=== PATIENT | male | born 2005 | race Caucasian/White ===

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

== ENCOUNTER 2024-08-13 15:17 | Outpatient (REF) | payer MEDICAID, SELFPAY ==
--- OUTSIDE RECORDS SUMMARY | 2024-08-13 15:23 | XMS_ITS | Encounter Summary ---
Author Organization [employer] Address [address] [facility] 7t [place] [address] Care Team Providers Care Complaint Evaluation Officer Name Role Phone Denisse Bradshaw MD Primary Care Provider [phone] Encounter Details Date Type Department Care Team (Late st Contact Info) Description 08/13/2023 Orders Only [facility] [address] [place] [address] ProviderAdelina MD Social History Tobacco Use Types Packs/Day Years Used Date Smoking Tobacco: Never Passive Smoke Exposure: Never Smokeless Tobacco: Never Depression Answer Date Recorded Patient Health Questionnaire-9 Score 21 06/26/2023 Patient Health Questionnaire-9 Score 21 06/26/2023 Last PHQ-9: Questionnaire Data Not on file 0 06/26/2023 Housing Stability Answer Date Recorded What is your housing situation today? I have abrahamanand levy 02/03/[address] you li ve. Do you have problems with any of the following? None of the above 02/03/2023 Food Insecurity Answer Date Recorded Within the past 12 months, y ou worried that your food would run out before you got money to buy more: Never True 02/03/2023 Within the past 12 months,th e food you bought just didn't last and you didn't have enough money to get more: Never True Transportation Answer Date Recorded In the past 12 months, has l ack of transportation kept you from medical appts, meetings, work or from getting things needed for daily living? Yes, it has kept me from medical appointments or getting medications. 01/14/2023 Utilities Answer Date Recorded In the past 12 months, has t he electric, gas, oil or water company threatened to shut off services in your home? No 02/03/2023 Depression Answer Date Recorded Patient Health Questionnaire-2 Score 5 06/26/2023 Comments Unknown Sex and Gender Information Value Date Recorded Sex Assigned at Female 02/04/2022 10:19 AM EDT Legal Sex Female 10:19 AM EDT Gender Identity Transgender Male 02/04/2022 10:1 9 AM EDT Sexual Orientation Something else 02/04/2022 10 :19 AM EDT documented as of this encounter Plan of Treatment Upcoming Encounters Date Type Department Care Team (Latest Contact Info) Description 08/13/2024 3:30 PM EDT Office Visit [facility] [address] [place] [address] Juan Jose Reyes MD [address] [place] [address] Acute cough (Primary Dx) 10/27/2024 3:30 PM EDT Office Visit [facility] [address] [place] [address] Saurabh Guerra, LESLEE [address] [place] [address] 11/10/2024 11:00 AM EDT Procedure Visit [facility] [address] [place] [address] Denisse Bradshaw MD [address] [place] [address] documented as of this encounter Procedures Procedure Name Priority Date/Time Associated Diagnosis Comments PATHOLOGY REPORT (HISTOPATHOLOGY) Routine 08/11/2023 9:13 AM EDT documented in this encounter Results * Pathology Report (08/11/2023 9:13 AM EDT) Tissue us Historical Provider LAB PATHOLOGY ORDERABLES Final Result documented in this encounter Visit Diagnoses Not on filedocumented in this encounter Additional Health Concerns Assessment Noted Time PHQ-9 Depression Total Score: 21 024 10:09 AM EDT documented as of this encounter Care Teams Complaint Evaluation Officer Relationship Specialty Start Date End Date Denisse Bradshaw MD [address] [place] [address] PCP - General Family Medicine 04/14/13 documented as of this encounter
--- OUTSIDE RECORDS SUMMARY | 2024-08-13 15:23 | XMS_ITS | Encounter Summary ---
Author Organization [employer] Address [address] [facility] 7t [place] [address] Care Team Providers Care Lofter Name Role Phone Denisse Bradshaw MD Primary Care Provider [phone] Encounter Details Date Type Department Care Team (Latest Contact Info) Description 08/13/2024 Travel Social History Tobacco Use Types Packs/Day Years Used Date Smoking Tobacco: Never Passive Smoke Exposure: Never Smokeless Tobacco: Never Depression Answer Date Recorded Patient Health Questionnaire-9 Score 21 08/06/2024 Patient Health Questionnaire-9 Score 21 08/06/2024 Last PHQ-9: Questionnaire Data Not on file 0 08/06/2024 Housing Stability Answer Date Recorded What is your housing situation today? I have abraham cam 10/14/[address] you li ve. Do you have problems with any of the following? None of the above 10/14/2023 Food Insecurity Answer Date Recorded Within the past 12 months, y ou worried that your food would run out before you got money to buy more: Sometimes True 2024 Within the past 12 months,th e food you bought just didn't last and you didn't have enough money to get more: Sometimes True 07/30/2024 Transportation Answer Date Recorded In the past 12 months, has l ack of transportation kept you from medical appts, meetings, work or from getting things needed for daily living? Yes, it has kept me from medical appointments or getting medications. 07/30/2024 Utilities Answer Date Recorded In the past 12 months, has t he electric, gas, oil or water company threatened to shut off services in your home? No 10/14/2023 Depression Answer Date Recorded Patient Health Questionnaire-2 Score 3 08/06/2024 Internet Access Answer Date Recorded Internet Access Q1 Yes 12/08/2023 Internet Access Q2 Not on file 12/08/2023 Comments Unknown Sex and Gender Information Value [...] Description 08/13/2024 3:30 PM EDT Office Visit [facility] [address] [place] [address] Juan Jose Reyes MD [address] [place] [address] Acute cough (Primary Dx) 10/27/2024 3:30 PM EDT Office Visit [facility] [address] [place] [address] Saurabh Guerra, DMD [address] [place] [address] 11/10/2024 11:00 AM EDT Procedure Visit [facility] [address] [place] [address] Denisse Bradshaw MD [address] [place] [address] documented as of this encounter Visit Diagnoses Not on filedocumented in this encounter Additional Health Concerns Assessment Noted Time PHQ-9 Depression Total Score: 21 025 11:36 AM EDT documented as of this encounter Care Teams Lofter Relationship Specialty Start Date End Date Denisse Bradshaw MD [address] [place] [address] PCP - General Family Medicine 04/14/13 documented as of this encounter
--- OUTSIDE RECORDS SUMMARY | 2024-08-13 15:23 | XMS_ITS | Encounter Summary ---
Author Organization [employer] Address [address] [facility] 7t [place] [address] Care Team Providers Care Labourers Name Role Phone Denisse Bradshaw MD Primary Care Provider [phone] Reason for Visit * Reason Onset Date Comments Nurse Triage 08/13/2024 Encounter Details Date Type Department Care Team ([facility] st Contact Info) Description 08/13/2024 Telephone [facility] [address] [place] [address] Denisse Bradshaw MD [address] [place] [address] Nurse Triage Social History Tobacco Use Types Packs/Day Years Used Date Smoking Tobacco: Never Passive Smoke Exposure: Never Smokeless Tobacco: Never Depression Answer Date Recorded Patient Health Questionnaire-9 Score 21 08/06/2024 Patient Health Questionnaire-9 Score 21 08/06/2024 Last PHQ-9: Questionnaire Data Not on file 0 08/06/2024 Housing Stability Answer Date Recorded What is your housing situation today? I have abraham levy 10/14/[address] you li [...] AM EDT documented as of this encounter Miscellaneous Notes * Telephone Encounter - Destiney Elizabeth RN - 08/13/2024 11:12 AM EDT Called pt. He states that he has been having a bad cough and sharp pains in lungs. Pt. Has all overbody pain. Pt. States that he had Pneumonia in past and that is what his lungs feel like. Pt. Has all over body pain. Pt. Has positive wheeze. Pt. Does not have HX. Of Asthma and does not have inhalers. Pt. Does not know if he has a fever. Pt. Does have chills and sweats. Protocol Used: Cough (Adult) Protocol-Based Disposition: Go to Office at 330pm today with dr. Reyes in [facility] Video visit offer not recorded Positive Triage Questions: * Mild difficulty breathing (e.g., minimal/no SOB at rest, SOB with walking, pulse < 100) and still present when not coughing * Wheezing is present * Severe coughing spells with wheeze * Continuous (nonstop) coughing interferes with work or school and no improvement using cough treatment per Care Advice * Patient wants to be seen * All higher-acuity triage questions were negative Care Advice Discussed: * Cough Medicines * Coughing Spells * Prevent Dehydration * Avoid Tobacco Smoke * Humidifier * Fever Medicines * Telephone Encounter - Malena Vasques - 08/13/2024 11:00 AM EDT Symptom: Cough Outcome: Schedule an urgent appointment (within 1 hour) or talk to a nurse or provider soon Reason: Wheezing (high-pitched whistling sound) The caller accepted this outcome. documented in this encounter Plan of Treatment Upcoming Encounters Date Type Department Care Team (Latest Contact Info) Description 08/13/2024 3:30 PM EDT Office Visit [facility] [address] [place] [address] Juan Jose Reyes MD [address] [place] [address] Acute cough (Primary Dx) 10/27/2024 3:30 PM EDT Office Visit [facility] [address] [place] [address] Saurabh Guerra DMD [address] [place] [address] 11/10/2024 11:00 AM EDT Procedure Visit [facility] [address] [place] [address] Denisse Bradshaw MD [address] [place] [address] documented as of this encounter Visit Diagnoses Not on filedocumented in this encounter Additional Health Concerns Assessment Noted Time PHQ-9 Depression Total Score: 21 025 11:36 AM EDT documented as of this encounter Care Teams Labourers Relationship Specialty Start Date End Date Denisse Bradshaw MD [address] [place] [address] PCP - General Family Medicine 04/14/13 documented as of this encounter
--- OUTSIDE RECORDS SUMMARY | 2024-08-13 15:23 | XMS_ITS | Encounter Summary ---
Author Organization [employer] Address [address] [facility] 7t [place] [address] Care Team Providers Care Pattern Hanger Name Role Phone Denisse Bradshaw MD Primary Care Provider [phone] Encounter Details Date Type Department Care Team ([facility] st Contact Info) Description 08/11/2023 Orders Only [facility] & PEDS [address] [place] [address] ProviderAdelina MD Social History Tobacco Use Types [...] 08/13/2024 3:30 PM EDT Office Visit [facility] [address] [place] [address] Juan Jose Reyes MD [address] [place] [address] Acute cough (Primary Dx) 10/27/2024 3:30 PM EDT Office Visit [facility] [address] [place] [address] Saurabh Guerra, DMD [address] [place] [address] 11/10/2024 11:00 AM EDT Procedure Visit [facility] [address] [place] [address] Denisse Bradshaw MD [address] [place] [address] documented as of this encounter Procedures Procedure Name Priority Date/Time Associated Diagnosis Comments HCG, QL, URINE Routine 08/11/2023 10:43 AM EDT documented in this encounter Results * HCG, Qualitative, Urine (08/11/2023 10:43 AM EDT) Urine Urine specimen obtained by clean catch procedure / Unknown us Historical Provider LAB URINE ORDERABLES Stefany l Result documented in this encounter Visit Diagnoses Not on filedocumented in this encounter Additional Health Concerns Assessment Noted Time PHQ-9 Depression Total Score: 21 024 10:09 AM EDT documented as of this encounter Care Teams Pattern Hanger Relationship Specialty Start Date End Date Denisse Bradshaw MD [address] [place] [address] PCP - General Family Medicine 04/14/13 documented as of this encounter
--- OUTSIDE RECORDS SUMMARY | 2024-08-13 15:23 | XMS_ITS | Encounter Summary ---
Author Organization [employer] Address [address] [place] [address] 7 [place] [address] Care Team Providers Care Automobile Contract Clerk Name Role Phone Denisse Bradshaw MD Primary Care Provider [phone] Reason for Visit * Reason Comments Cough Encounter Details Date Type Department Care Team ([facility] Contact Info) Description 08/13/2024 3:30 PM EDT Office Visit [facility]ED[facility] [address] [place], [place] [phone] Juan Jose Reyes MD [address] [place] [address] Acute cough (Primary Dx) Social History Tobacco Use Types Packs/Day Years [...] AM EDT documented as of this encounter Last Filed Vital Signs Vital Sign Reading Time Taken Comments Blood Pressure 137/87 08/13/2024 2:45 PM EDT Pulse 105 08/13/2024 2:45 PM EDT Temperature 36.8 ??C (98.2 ??F) 08/13/2024 2:45 PM ED T Respiratory Rate 19 08/13/2024 2:45 PM EDT Oxygen Saturation 96% 08/13/2024 2:45 PM EDT Inhaled Oxygen Concentration - - Weight - - Height - - Body Mass Index - - documented in this encounter Progress Notes * Juan Jose Reyes MD - 08/13/2024 3:30 PM EDT SUBJECTIVE Cheng Judd is a 19 y.o. adult who presents for Cough. Cough This is a new problem. The current episode started in the past 7 days. Associated symptoms include shortness of breath. Pertinent negatives include no chest pain, chills, ear congestion, ear pain, eye redness, fever, headaches, heartburn, hemoptysis, myalgias, nasal congestion, postnasal drip, rash, rhinorrhea, sore throat, sweats, weight loss or wheezing. No sick contact. No reported fever. Patient denies smoking. Got concerned because of history of pneumonia about 4 years ago. Patient Active Problem List Diagnosis Depressive disorder Gender dysphoria Constipation Urinary tract infectious disease Polyarthralgia Primary insomnia PTSD (post-traumatic stress disorder) No Known Allergies Current Outpatient Medications on File Prior to Visit Medication Sig Dispense Refill Diclofenac Sodium 1 % gel Apply bid to affected areas 100 g 3 fluticasone (Flonase Allergy Relief) 50 MCG/ACT nasal spray Administer 1 spray into each nostril Once per day. 16 g 3 hydrOXYzine pamoate (Vistaril) 25 MG capsule Take 1 capsule (25 mg) by mouth every 8 (eight) hours if needed for itching. 90 capsule 1 ketoconazole (NIZOral) 2 % shampoo shampoo 5-10 cc, leave on 5 minutes, then rinse off 2x/week for 2-4 weeks prn. 100 mL 11 Ketotifen Fumarate 0.035 % solution Inject 1 drop into the eye Once per day. 10 mL 3 loratadine (Claritin) 10 MG tablet TAKE 1 TABLET BY MOUTH EVERY DAY IF NEEDED FOR ALLERGY SYMPTOMS 90 tablet 3 norethindrone (Micronor) 0.35 MG tablet prazosin (Minipress) 1 MG capsule Take 1 capsule orally 1 hour prior bedtime 30 capsule 5 sertraline (Zoloft) 50 MG tablet Take 1 tablet orally daily 30 tablet 5 SUMAtriptan (Imitrex) 50 MG tablet TAKE 1 TABLET (50 MG) BY MOUTH 1 (ONE) TIME IF NEEDED FOR MIGRAINE FOR UP TO 108 DOSES. 9 tablet 11 testosterone cypionate (Depo-Testosterone) 200 MG/ML injection INJECT 0.2 ML (40 MG) SUBCUTANEOUSLYEVERY 7 DAYS. *SINGLE USE VIALS - DO NOT REUSE* traZODone (Desyrel) 50 MG tablet Take 1 tablet (50 mg) by mouth at bedtime. 30 tablet 5 No current facility-administered medications on file prior to visit. Review of Systems Constitutional: Positive for fatigue. Negative for chills, fever and weight loss. Body aches HENT: Negative for ear pain, facial swelling, hearing loss, postnasal drip, rhinorrhea and sore throat. Eyes: Negative for pain, redness and itching. Respiratory: Positive for cough and shortness of breath. Negative for apnea, hemoptysis, chest tightness and wheezing. Cardiovascular: Negative for chest pain, palpitations and leg swelling. Gastrointestinal: Negative for heartburn. Musculoskeletal: Negative for myalgias. Skin: Negative for rash. Neurological: Negative for headaches. OBJECTIVE Vitals: 08/13/24 1445 BP: 137/87 BP Location: Left arm Patient Position: Sitting BP Cuff Size: Adult Pulse: 105 Resp: 19 Temp: 98.2 ??F (36.8 ??C) TempSrc: Oral SpO2: 96% Physical Exam Constitutional: General: He is not in acute distress. Appearance: Normal appearance. He is not ill-appearing, toxic-appearing or diaphoretic. HENT: Head: Normocephalic. Nose: Nose normal. Eyes: Pupils: Pupils are equal, round, and reactive to light. Cardiovascular: Rate and Rhythm: Normal rate. Pulmonary: Effort: Pulmonary effort is normal. Neurological: General: No focal deficit present. Mental Status: He is alert. Psychiatric: Mood and Affect: Mood normal. Assessment/Plan Assessment/Plan Diagnoses and all orders for this visit: Acute cough Comments: Most likely has a viral syndrome Supportive care recommended. To start the prescribed zpak only if coughing after 3 more days or if the xray is showing consolidation. Will be called with the results of the workup. Orders: - XR Chest 2 Views; Future - CBC auto differential; Future - Sed Rate by Modified Westergren; Future - C-reactive Protein; Future - POCT Rapid Covid-19 BinaxNOW - POCT Rapid Influenza A OSOM - POCT Rapid Influenza B OSOM - azithromycin (Zithromax) 250 MG tablet; 500 mg on day 1, 250 mg day 2 through 5. - dextromethorphan-guaiFENesin (Tussin DM) 10-100 MG/5ML liquid; Take 5 mL by mouth every 4 (four) hours if needed for cough for up to 10 days. - acetaminophen (Tylenol) 325 MG tablet; Take 2 tablets (650 mg) by mouth every 6 (six) hours if needed for mild pain for up to 10 days. documented in this encounter Plan of Treatment Upcoming Encounters Date Type Department Care Team (Late st Contact Info) Description 10/27/2024 3:30 PM EDT Office Visit [facility] [address] [place] [address] Saurabh Guerra DMD [address] [place] [address] 11/10/2024 11:00 AM EDT Procedure Visit [facility] [address] [place] [address] Denisse Bradshaw MD [address] [place] [address] Scheduled Orders Name Type Priority Associated Diagnoses Orde r Schedule XR Chest 2 Views Imaging Routine Acute cough Expected: 08/13/2024, Expires: 08/13/2025 CBC auto differential Lab Routine Acute cough Expected: 08/13/2024 (Approximate), Expires: 08/13/2025 Sed Rate by Modified Westergren Lab Routine Acute cough Expected: 08/13/2024, Expires: 08/13/2025 C-reactive Protein Lab Routine Acute cough Expected: 08/13/2024 (Approximate), Expires: 08/13/2025 POCT Rapid Covid-19 BinaxNOW Point of Care Testing Routine Acute cough Ordered: 08/13/2024 POCT Rapid Influenza A OSOM Point of Care Testing Routine Acute cough Ordered: 08/13/2024 POCT Rapid Influenza B OSOM Point of Care Testing Routine Acute cough Ordered: 08/13/2024 documented as of this encounter Visit Diagnoses Diagnosis Acute cough- Primary documented in this encounter Additional Health Concerns Assessment Noted Time PHQ-9 Depression Total Score: 21 025 11:36 AM EDT documented as of this encounter Care Teams Automobile Contract Clerk Relationship Specialty Start Date End Date Denisse Bradshaw MD [address] [place] [address] PCP - General Family Medicine 04/14/13 documented as of this encounter
--- OUTSIDE RECORDS SUMMARY | 2024-08-13 15:23 | XMS_ITS | Encounter Summary ---
Author Organization [employer] Address [address] [facility] 7 [place] [address] Care Team Providers Care Commercial Lines Account Assistant Name Role Phone Denisse Bradshaw MD Primary Care Provider [phone] Reason for Visit * Reason Onset Date Comments pre-op 05/05/2023 Encounter Details Date Type Department Care Team ([facility] Contact Info) Description 05/05/2023 Telephone [facility] MED & PEDS [address] [place], [place] [phone] Denisse Bradshaw MD [address] [place] [address] pre-op Social History Tobacco Use Types Packs/Day Years Used Date Smoking Tobacco: Never Passive Smoke Exposure: Never Smokeless Tobacco: Never Housing Stability Answer Date Recorded What is [...] the past 12 months, has t he [employer], oil or water company threatened to shut off services in your home? No 02/03/2023 Comments Unknown Sex and Gender Information Value Date Recorded Sex Assigned at Female 02/04/2022 10:19 AM EDT Legal Sex Female 10:19 AM EDT Gender Identity Transgender Male 02/04/2022 10:1 9 AM EDT Sexual Orientation Something else 02/04/2022 10 :19 AM EDT documented as of this encounter Miscellaneous Notes * Telephone Encounter - Wing Fiordaliza RN - 06/05/2023 11:39 AM EST Tc to pt regarding upcoming surgery and need for pre-op appt. Unable to reach pt, left message for pt to call back. * Telephone Encounter - Sintia Villareal - 05/05/2023 2:37 PM EST Tc from pt grandparent in regards to an upcoming surgery patient is having on August 11, 2023 @ 9:45 am for a Breast Removal Surgery @ [facility]. States that Facility advised to contact PCP and schedule a Pre- Op appt but grandparent does not know half of the information needed. Please contact pt @ [phone] documented in this encounter Plan of Treatment Upcoming Encounters Date Type Department Care Team (Latest Contact Info) Description 08/13/2024 3:30 PM EDT Office Visit [facility] MED & PEDS [address] [place] [address] Juan Jose Reyes MD [address] [place] [address] Acute cough (Primary Dx) 10/27/2024 3:30 PM EDT Office Visit [facility] ADULT DENTAL [address] [place] [address] Saurabh Guerra DMD [address] [place] [address] 11/10/2024 11:00 AM EDT Procedure Visit [facility] MED & PEDS [address] [place] [address] Denisse Bradshaw MD [address] [place] [address] documented as of this encounter Visit Diagnoses Not on filedocumented in this encounter Care Teams Commercial Lines Account Assistant Relationship Specialty Start Date End Date Denisse Bradshaw MD [address] [place] [address] PCP - General Family Medicine 04/14/13 documented as of this encounter
--- OUTSIDE RECORDS SUMMARY | 2024-08-13 15:23 | XMS_ITS | Encounter Summary ---
Author Organization [employer] Address [address] [facility] 7t [place] [address] Care Team Providers Care Electronic Scale Tester Name Role Phone Denisse Bradshaw MD Primary Care Provider [phone] Encounter Details Date Type Department Care Team ([facility] st Contact Info) Description 08/05/2023 Orders Only [facility] MED & PEDS [address] [place], [place] [phone] Juan Jose Reyes MD [address] [place] [address] Social History Tobacco Use Types Packs/Day Years Used Date Smoking Tobacco: Never Passive Smoke Exposure: Never Smokeless Tobacco: Never Depression Answer Date Recorded Patient Health Questionnaire-9 Score 21 06/26/2023 Patient Health Questionnaire-9 Score 21 06/26/2023 Last PHQ-9: Questionnaire Data Not on file 0 06/26/2023 Housing Stability Answer Date Recorded What is your housing situation today? I have abraham levy 02/03/[address] you [...] 08/13/2024 3:30 PM EDT Office Visit [facility] MED [facility] PEDS [address] [place] [address] Juan Jose Reyes MD [address] [place] [address] Acute cough (Primary Dx) 10/27/2024 3:30 PM EDT Office Visit [facility] ADULT DENTAL [address] [place] [address] Saurabh Guerra DMD [address] [place] [address] 11/10/2024 11:00 AM EDT Procedure Visit [facility] MED & PEDS [address] [place] [address] Denisse Bradshaw MD [address] [place] [address] documented as of this encounter Visit Diagnoses Not on filedocumented in this encounter Additional Health Concerns Assessment Noted Time PHQ-9 Depression Total Score: 21 024 10:09 AM EDT documented as of this encounter Care Teams Electronic Scale Tester Relationship Specialty Start Date End Date Denisse Bradshaw MD [address] [place] [address] PCP - General Family Medicine 04/14/13 documented as of this encounter
--- OUTSIDE RECORDS SUMMARY | 2024-08-13 15:23 | XMS_ITS | Clinical Summary ---
Author Organization [employer] Address [address] [facility] 7t [place] [address] Care Team Providers Care Valuation Manager Name Role Phone Denisse Bradshaw MD Primary Care Provider Allergies No known active allergies Medications testosterone cypionate (Depo-Testost erone) 200 MG/ML injection INJECT 0.2 ML (40 MG) SUBCUTANEOUSLY EVERY 7 DAYS. *SINGLE USE VIALS - DO NOT REUSE* 023 Active norethindrone (Micronor) 0.35 MG tablet 023 Active Diclofenac Sodium 1 % gel Apply bid to affected areas 100 g 3 023 Active ketoconazole (NIZOral) 2 % shampoo shampoo 5-10 cc, leave on 5 minutes, then rinse off 2x/week for 2-4 weeks prn. 100 mL 11 024 Active SUMAtriptan (Imitrex) 50 MG tablet TAKE 1 TABLET (50 MG) BY MOUTH 1 (ONE) TIME IF NEEDED FOR MIGRAINE FOR UP TO 108 DOSES. 9 tablet 11 025 Active loratadine (Claritin) 10 MG tablet TAKE 1 TABLET BY MOUTH EVERY DAY IF NEEDED FOR ALLERGY SYMPTOMS 90 tablet 3 025 Active sertraline (Zoloft) 50 MG tablet Take 1 tablet orally daily 30 tablet 5 025 Active hydrOXYzine pamoate (Vistaril) 25 MG capsule Take 1 capsule (25 mg) by mouth every 8 (eight) hours if needed for itching. 90 capsule 1 025 Active prazosin (Minipress) 1 MG capsule Take 1 capsule orally 1 hour prior bedtime 30 capsule 5 Active traZODone (Desyrel) 50 MG tablet Take 1 tablet (50 mg) by mouth at bedtime. 30 tablet 5 Active fluticasone (Flonase Allergy Relief) 50 MCG/ACT nasal spray Administer 1 spray into each nostril Once per day. 16 g 3 Active Ketotifen Fumarate 0.035 % solutionIndic ations:Allerg y, subsequent encounter Inject 1 drop into the eye Once per day. 10 mL 3 Active azithromycin (Zithromax) 250 MG tabletIndicat ions:Acute cough 500 mg on day 1, 250 mg day 2 through 5. 6 tablet Active dextromethorp araujo-guaiFENes in (Tussin DM) 10-100 MG/5ML liquidIndicat ions:Acute cough Take 5 mL by mouth every 4 (four) hours if needed for cough for up to 10 days. 180 mL 025 2024 Active acetaminophen (Tylenol) 325 MG tabletIndicat ions:Acute cough Take 2 tablets (650 mg) by mouth every 6 (six) hours if needed for mild pain for up to 10 days. 30 tablet 025 2024 Active fluticasone (Flonase Allergy Relief) 50 MCG/ACT nasal spray 1 spray by intranasal route daily ;administer into each nostril 022 2024 Discontinued(R eorder (will not trigger notification to Pharmacy)) SUMAtriptan (Imitrex) 50 MG tablet Take 1 tablet (50 mg) by mouth 1 (one) time if needed for migraine for up to 108 doses. 9 tablet 11 024 2024 Discontinued loratadine (Claritin) 10 MG tablet TAKE 1 TABLET BY MOUTH EVERY DAY IF NEEDED FOR ALLERGY SYMPTOMS 90 tablet 3 024 2024 Discontinued ketotifen (Zaditor) 0.025 % ophthalmic solutionIndic ations:Allerg y, subsequent encounter INSTILL 1 DROP INTO BOTH EYES TWICE A DAY NEEDED FOR ALLERGIES 5 mL 11 024 2024 Discontinued(R eorder (will not trigger notification to Pharmacy)) hydrOXYzine pamoate (Vistaril) 25 MG capsule TAKE 1 CAPSULE BY MOUTH EVERY 6 (SIX) HOURS IF NEEDED FOR ANXIETY. 120 capsule 1 024 2024 Discontinued(R eorder (will not trigger notification to Pharmacy)) traZODone (Desyrel) 50 MG tablet Take 1 tablet (50 mg) by mouth at bedtime. 90 tablet 1 024 2024 Discontinued sertraline (Zoloft) 50 MG tablet Take 1 and a half tablet orally daily 45 tablet 5 024 2024 Discontinued(R eorder (will not trigger notification to Pharmacy)) prazosin (Minipress) 1 MG capsule Take 1 capsule orally 1 hour prior bedtime 30 capsule 5 2024 Discontinued(R eorder (will not trigger notification to Pharmacy)) traZODone (Desyrel) 50 MG tablet TAKE 1 TABLET BY MOUTH AT BEDTIME 90 tablet 1 025 2024 Discontinued(R eorder (will not trigger notification to Pharmacy)) Active Problems Problem Noted Date Diagnosed Date PTSD (post-traumatic stress disorder) 10/14/2023 Primary insomnia 09/17/2023 Assessment & Plan (09/17/2023 11:23 AM EDT): Discussed current medications as needed. Discussed treatment options for symptoms and potential side effects. Prescribed Desyrel. F/u on 10/14/[address] Bradshaw. Relevant Medications Trazodone (Desyrel) 50 MG Tablet Polyarthralgia 11/26/2022 Assessment & Plan (11/26/2022 3:15 PM EDT): Patient with chronic diffused joint pain. Will send for xrays and schedule appointment with PCP. Will benefit from referral to set o type operator, referral placed. Will send labs. Gender dysphoria 07/02/2022 Depressive disorder 06/27/2022 Constipation 08/06/2013 Urinary tract infectious disease 01/23/2011 Encounters Date Type Department Care Team Description 08/13/2024 3:30 PM EDT Office Visit [facility] MED & PEDS [address] [place], [place] [phone] Juan Jose Reyes MD Acute cough (Primary Dx) 08/13/2024 Travel 08/13/2024 Telephone [facility] [address] [place] [address] Denisse Bradshaw MD Nurse Triage 08/06/2024 10:30 AM EDT Office Visit [facility] MED & PEDS [address] [place] [address] Denisse Bradshaw MD Anxiety with depression (Primary Dx); Allergy, subsequent encounter; Dietary counseling; Exercise counseling; Gender dysphoria 08/06/2024 Travel 07/30/2024 Patient Outreach [facility] [address] [place] [address] Denisse Bradshaw MD Care Coordination (CHW outreach for SDOH PT-1 and food needs-referral completed /) 07/30/2024 Patient Outreach [address] [address] Denisse Bradshaw MD Pre-visit Planning (SDOH screening positive and Tobacco screening negative) 07/16/2024 Refill [facility] MED & PEDS [address] [place] [address] Denisse Bradshaw MD from Last 3 Months Immunizations Name Administration Dates Next Due DTaP, 5 pertussis antigens 06/29/2007,,2003,10/16,2003 HPV 9-Valent 11/06/2016,09/25/2015 HPV, Quadrivalent 07/23/2013 Hep A, ped/adol, 2 dose 06/29/2007,06/17/2006 Hep B, Adolescent or Pediatric 03/15/2004,2003,2003 Hib (HbOC) 10/05/2004, 4,2003,08/16 IPV 05/13/2018, 5,03/15/2004,10/16,2003 Influenza injectable quadriv alent IIV4 with preservative 12/12/2022,01/22/2017 Influenza injectable quadriv alent preservative free 03/10/2020,03/09/2020 Influenza, live, intranasal 01/12/2010 Influenza, seasonal, injecta ble, preservative free 01/30/2024 MMR 07/13/2008,06/13/2004 Meningococcal MCV4P ACYW-135 03/24/2020,09/25/19 16 Pfizer Covid-19 Vaccine 12+ 10/02/2020, Tdap 09/25/2015 Varicella 07/13/2008,06/13/2004 Social History Tobacco Use Types Packs/Day Years Used Date Smoking Tobacco: Never Passive Smoke Exposure: Never Smokeless Tobacco: Never Tobacco Cessation:Counseling Given: Not Answered Depression Answer Date Recorded Patient Health Questionnaire-9 [...] Something else 02/04/2022 10 :19 AM EDT Last Filed Vital Signs Vital Sign Reading Time Taken Comments Blood Pressure 137/87 08/13/2024 2:45 PM EDT Pulse 105 08/13/2024 2:45 PM EDT Temperature 36.8 ??C (98.2 ??F) 08/13/2024 2:45 PM ED T Respiratory Rate 19 08/13/2024 2:45 PM EDT Oxygen Saturation 96% 08/13/2024 2:45 PM EDT Inhaled Oxygen Concentration - - Weight 78 kg (172 lb) 08/06/2024 10:25 AM EDT Height 154.9 cm (5' 1 ) 08/06/2024 10:25 AM EDT Body Mass Index 32.5 08/06/2024 10:25 AM EDT Plan of Treatment Upcoming Encounters Date Type Department Care Team (Latest Contact Info) Description 08/13/2024 3:30 PM EDT Office Visit [facility] MED & PEDS [address] [place] [address] Juan Jose Reyes MD [address] [place] [address] Acute cough (Primary Dx) 10/27/2024 3:30 PM EDT Office Visit [facility] ADULT DENTAL [address] [place] [address] Saurabh Guerra DMD [address] [place] [address] 11/10/2024 11:00 AM EDT Procedure Visit [facility] MED & PEDS [address] [place] [address] Denisse Bradshaw MD [address] [place] [address] Health Maintenance Due Date Last Done Comments HIV Screening 2003 Alcohol/Substance Use Screening 2015 Family Planning (PISQ) 06/13/2018 Dental Oral Exam 05/14/2020 11/11/2019, , 09/26/2015, Additional history exists Dental Prophylaxis 05/14/2020 11/11/2019, 0 12/19/2017, 09/26/2015, Additional history exists Dental X-Ray: Bitewings 11/11/2020 11/11/19 20, 12/19/2017, 09/26/2015, Additional history exists Chlamydia and Gonorrhea Screening 08/29/2023 08/28/2022 COVID-19 Vaccine ( season) 2023 10/02/2020, 09/01/2020 Pap Smear 06/13/2024 SDOH Screening 07/30/2025 07/30/2024 Depression Screening 08/06/2025 08/06/2024, 08/07/19 Tobacco Screening 08/13/2025 08/13/2024 DTaP/Tdap/Td Vaccines (7 - Td or Tdap) 09/24/2025 09/25/2015, 06/29/2007, 10/05/2004, Additional history exists Dental X-Ray: Full Mouth 02/13/2027 02/13/2024, 12/06 Zoster Vaccines (1 of 2) 06/13/2053 RSV Patients and Patients Aged 60 years or older (1 - 1-dose 75+ series) 06/13/2078 Hepatitis B Vaccines Completed 03/15/2004, 2003, 2003 HIB Vaccines Completed 10/05/2004, 12/06, 2003, Additional history exists Hepatitis A Vaccines Completed 06/29/2007, 06/18/19 07 HPV Vaccines Completed 11/06/2016, 09/06, 07/23/2013 IPV Vaccines Completed 05/13/2018, 08/06, 03/15/2004, Additional history exists Meningococcal Vaccine Completed 03/24/2020, 016 Hepatitis C Screening Completed 11/26/2022 Influenza Vaccine Completed 01/30/2024, , 03/10/2020, Additional history exists Pneumococcal Vaccine: Pediatrics (0 to 5 Years) and At-Risk Patients (6 to 49) Years) Aged Out No longer eligible based on patient's age to complete this topic RSV under 20 months Aged Out No longe r eligible based on patient's age to complete this topic Rotavirus Vaccines Aged Out No longer eligible based on patient's age to complete this topic Procedures Procedure Name Priority Date/Time Associated Diagnosis Comments PANORAMIC RADIOGRAPHIC IMAGE Routine 02/13/2024 1:00 PM EST HEPATITIS C ANTIBODY Routine 11/26/2022 3:31 PM EDT SURESWAB(R) ADVANCED VAGINITIS PLUS, TMA Routine 08/28/2022 3:19 PM EDT Dysuria PROPHYLAXIS - ADULT Routine 11/11/2019 1 2:00 AM EDT BITEWINGS - 4 RADIOGRAPHIC IMAGES Routine 11/11/2019 12:00 AM EDT PERIODIC ORAL EVALUATION - ESTABLISHED PATIENT Routine 11/11/2019 12:00 AM EDT from Last 3 Months or Most Recently Relevant to Health Maintenance Results * Hepatitis C Ab (11/26/2022 3:31 PM EDT) Hepatitis C Antibody Nonreactive Nonreactive [facility] Comment:Antibodies to HCV no t detected; does not exclude early acuteHCV infection. 11/26/2022 3:31 PM EDT 11/26/2022 5:33 PM EDT Francia Maciel MD LAB BLOOD ORDERABLES Final Re sult [facility] [address] [place] [address] [phone] * SureSwab?? Advanced Vaginitis Plus, TMA (08/28/2022 3:19 PM EDT) SureSwab 9R) ADV Bacterial Vaginosis (BV), TMA NEGATIVE NEGATIVE [facility] [place] [employer] Monica Species NOT DETECTED NOT DETECTED [facility] [place] [employer] Monica glabrata NOT DETECTED NOT DETECTED [facility] [place] [employer] Comment: Monica species C. albicans, C. tropicalis, C. parapsilosis, and/or C. dubliniensis can be detected, but not differentiated, in the Monica spp. result. Trichomonas vaginalis (TV), TMA NOT DETECTED NOT DETECTED [facility] [place] [facility] Chlamydia trachomatis RNA, TMA, Urogenital NOT DETECTED NOT DETECTED [facility] [place] [employer] Neisseria gonorrhoeae RNA, TMA, Urogenital NOT DETECTED NOT DETECTED [facility] [place] [facility] [employer] Comment: For additional information, please refer to https://[address]/faq/WRL112 (This link is being provided for information/ educational purposes only.) Swab 08/28/2022 3:19 PM EDT 08/29/2022 3:50 AM EDT us Noreen Cota MD LAB BODY FLUIDS AND STOOLS ORDER PATITO Final Result [facility] [address], [place] [address] [facility] [place] [facility] [address] [place] [address] from Last 3 Months or Most Recently Relevant to Health Maintenance [place] [address] [place] [address] C[facility] MEDICAID STAND CHILD Care Teams Valuation Manager Relationship Specialty Start Date End Date Denisse Bradshaw MD [address] [place] [phone] PCP - General Family Medicine 04/14/13
--- OUTSIDE RECORDS SUMMARY | 2024-08-13 15:23 | XMS_ITS | Encounter Summary ---
Author Organization [employer] Address [address] [facility] [address]t [place] [address] Care Team Providers Care Insights Strategist Name Role Phone Denisse Bradshaw MD Primary Care Provider [phone] Reason for Visit * Reason Onset Date Comments Uber Set-up 10/14/2023 Encounter Details Date Type Department Care Team ([facility] st Contact Info) Description 10/14/2023 Telephone [facility] [address] [place] [address] Denisse Bradshaw MD [address] [place] [phone] Uber Set-up Social History Tobacco Use Types Packs/Day Years [...] got money to buy more: Never True 10/14/2023 Within the past 12 months,th e food you bought just didn't last and you didn't have enough money to get more: Never True 12/2023 Transportation Answer Date Recorded In the past 12 months, has l ack of transportation kept you from medical appts, meetings, work or from getting things needed for daily living? No 10/14/2023 Utilities Answer Date Recorded In the past [...] Telephone Encounter - Wing Fiordaliza RN - 10/14/2023 8:54 AM EDT Tc to pt's grandmother, made uber round [place] with berry picker starting at 10:45 am. Grandmother verbalized understanding and agreement with plan. * Telephone Encounter - Ralph Scott - 10/14/2023 8:38 AM EDT Tc from the patients grandmother requesting a Uber set-up for the appt for 10/13 @ 11:15 machine sign writer confirmed address and contact number documented in this encounter Plan of Treatment Upcoming Encounters Date Type Department Care Team (Latest Contact Info) Description 08/13/2024 3:30 PM EDT Office Visit [facility] MED & PEDS [address] [place] [address] Juan Jose Reyes MD [address] [place] [address] Acute cough (Primary Dx) 10/27/2024 3:30 PM EDT Office Visit [facility] ADULT DENTAL [address] [place] [address] Saurabh Guerra DMD [address] [place] [address] 11/10/2024 11:00 AM EDT Procedure Visit [facility] MED & PEDS [address] [place] [address] Denisse Bradshaw MD [address] [place] [address] documented as of this encounter Visit Diagnoses Not on filedocumented in this encounter Additional Health Concerns Assessment Noted Time PHQ-9 Depression Total Score: 21 024 10:09 AM EDT documented as of this encounter Care Teams Insights Strategist Relationship Specialty Start Date End Date Denisse Bradshaw MD [address] [place] [address] PCP - General Family Medicine 04/14/13 documented as of this encounter
--- OUTSIDE RECORDS SUMMARY | 2024-08-13 15:23 | XMS_ITS | Encounter Summary ---
Author Organization [employer] Address [address] [place] [address] 7 [place] [address] Care Team Providers Care Demand Planning Manager Name Role Phone Denisse Bradshaw MD Primary Care Provider [phone] Encounter Details Date Type Department Care Team (Late st Contact Info) Description 11/27/2022 Orders Only [facility] MED & PEDS [address] [place], [place] [phone] Denisse Bradshaw MD [address] [place], [place] [phone] Social History Tobacco Use Types Packs/Day Years Used Date Smoking Tobacco: Never Assessed Comments Unknown Sex and Gender Information Value [...] 3:30 PM EDT Office Visit [facility] MED & PEDS [address] [place], [place] [phone] Juan Jose Reyes MD [address] [place], [place] [phone] Acute cough (Primary Dx) 10/27/2024 3:30 PM EDT Office Visit [facility] ADULT DENTAL [address] [place], [place] [phone] Saurabh Guerra DMD [address] [place] [address] 11/10/2024 11:00 AM EDT Procedure Visit [facility] MED & PEDS [address] [place] [address] Denisse Bradshaw MD [address] [place] [address] documented as of this encounter Visit Diagnoses Not on filedocumented in this encounter Care Teams Demand Planning Manager Relationship Specialty Start Date End Date Denisse Bradshaw MD [address] [place] [address] PCP - General Family Medicine 04/14/13 documented as of this encounter
--- OUTSIDE RECORDS SUMMARY | 2024-08-13 15:23 | XMS_ITS | Encounter Summary ---
Author Organization [employer] Address [address] [place] [address] 7t [place] [address] Care Team Providers Care Windows Mobile Developer Name Role Phone Denisse Bradshaw MD Primary Care Provider [phone] Reason for Visit * Reason Onset Date Comments Nurse Triage 11/25/2022 Encounter Details Date Type Department Care Team ([facility] st Contact Info) Description 11/25/2022 Telephone [facility] PEDS [address] [place] [address] Denisse Bradshaw MD [address] [place] [address] Nurse Triage Social History Tobacco Use Types [...] encounter Miscellaneous Notes * Telephone Encounter - Gabbi Natarajan RN - 11/25/2022 2:12 PM EDT called pt to triage, spoke to pt. pt states bilateral wrist and ankle pain. pt states has had for many years and having more frequently. pt requesting appt to be seen, given appt with [facility] at 3:00for exam. pt states will need assistance with transportation and will task to team nurses to arrange for an uber ride. advised home care: rest, ice, heat, OTC pain reliever as needed, and call back if worsening or new concerns. insurance verified. Protocol Used: Hand and Wrist Pain (Adult) Protocol-Based Disposition: See in Office or Video Visit within 3 Days Video visit not offered Positive Triage Questions: * Moderate pain (e.g., interferes with normal activities) and present > 3 days * Patient wants to be seen * All higher-acuity triage questions were negative Care Advice Discussed: * Reassurance and Education - Overuse * Use a Cold Pack for Pain * Use Heat After 48 Hours for Pain * Rest * Pain Medicines * Reasons To Call Back - You become worse * Telephone Encounter - Ira Vera - 11/25/2022 1:45 PM EDT Symptoms: Hand or Wrist Pain - Not From Injury, Foot or Ankle Pain - Not From Injury Outcome: Schedule an urgent appointment (within 4 hours) or talk to a nurse or provider soon Reason: Swelling The caller accepted this outcome Patient is requesting a referral for orthopedics. documented in this encounter Plan of Treatment Upcoming Encounters Date Type Department Care Team (Latest Contact Info) Description 08/13/2024 3:30 PM EDT Office Visit [facility] MED & PEDS [address] [place] [address] Juan Jose Reyes MD [address] [place] [address] Acute cough (Primary Dx) 10/27/2024 3:30 PM EDT Office Visit [facility] ADULT DENTAL [address] [place] [address] Saurabh Guerra DMD [address] [place] [address] 11/10/2024 11:00 AM EDT Procedure Visit [facility] MED & PEDS [address] [place] [address] Denisse Bradshaw MD [address] [place] [address] documented as of this encounter Visit Diagnoses Not on filedocumented in this encounter Care Teams Windows Mobile Developer Relationship Specialty Start Date End Date Denisse Bradshaw MD [address] [place] [address] PCP - General Family Medicine 04/14/13 documented as of this encounter
--- OUTSIDE RECORDS SUMMARY | 2024-08-13 15:23 | XMS_ITS | Encounter Summary ---
Author Organization [employer] Address [address] [facility] 7t [place] [address] Care Team Providers Care Blade Operator Name Role Phone Denisse Bradshaw MD Primary Care Provider [phone] Reason for Visit * Reason Onset Date Comments PT1 05/01/2023 Encounter Details Date Type Department Care Team ([facility] st Contact Info) Description 05/01/2023 Telephone [facility] [address] [place] [address] Denisse Bradshaw MD [address] [place] [phone] PT1 Social History Tobacco Use Types Packs/Day Years [...] encounter Miscellaneous Notes * Telephone Encounter - America Vasques - 05/01/2023 12:12 PM EST PT-1 submitted for patient. They will receive a letter of approval or denial in the mail. * Telephone Encounter - Sally Quiles - 05/01/2023 11:20 AM EST PT1 needed Date: 05/05/2023 Time: 11 AM Visits: n/a Address: [address] [place] [address] Facility: [facility] Wheel Chair: no Soaker Needed: 1 documented in this encounter Plan of Treatment Upcoming Encounters Date Type Department Care Team (Latest Contact Info) Description 08/13/2024 3:30 PM EDT Office Visit [facility] MED & PEDS [address] [place] [address] Juan Jose Reyes MD [address] [place] [address] Acute cough (Primary Dx) 10/27/2024 3:30 PM EDT Office Visit [facility] ADULT DENTAL [address] [place] [address] Saurabh Guerra DMD [address] [place] [address] 11/10/2024 11:00 AM EDT Procedure Visit [facility] MED & PEDS [address] [place] [address] Denisse Bradshaw MD [address] [place] [address] documented as of this encounter Visit Diagnoses Not on filedocumented in this encounter Care Teams Blade Operator Relationship Specialty Start Date End Date Denisse Bradshaw MD [address] [place] [address] PCP - General Family Medicine 04/14/13 documented as of this encounter
[2024-08-13 17:50] LABS: Basophils Percent Auto 0.7 % (0-2); Hemoglobin 15.6 g/dl (14.0-18.0); Imm Gran Abs Auto 0.01 X10*3/uL (0.00-0.03); Imm Gran Pct Auto 0.2 % (0.0-0.4); MANUAL DIFF FLAG SCAN; PLT CLUMP 1; SCAN SMEAR FLAG 1
[2024-08-13 17:52] LABS: Eosinophils Absolute Auto 0.3 X10*3/uL (0.0-0.4); Eosinophils Percent Auto 6.9 % (0-4); Hematocrit 44.6 % (42.0-52.0); Lymphocytes Absolute Auto 1.5 X10*3/uL (1.2-4.9); Lymphocytes Percent Auto 33.3 % (20-40); Mean Corpuscular Volume 88.5 fL (80.0-98.0); Mean Platelet Volume 9.5 fL (9.4-12.4); Monocytes Absolute Auto 0.7 X10*3/uL (0.1-1.2); Neutrophils Percent Auto 43.9 % (45-73); Red Blood Count 5.04 X10*6/uL (4.60-5.80); Red Cell Distribution Width 12.1 % (11.0-16.0)
[2024-08-13 18:10] LABS: Platelet Count 212 X10*3/uL (160-400); SLIDE REVIEW VERIFIED; White Blood Count 4.5 X10*3/uL (4.8-10.8)
[2024-08-13 18:29] LABS: Erythrocyte Sedimentation Rate 13 MM/HR (0-15)
== END 2024-08-13 15:18 | disposition home or self-care (01) ==
LOC: HO.CHCLDS 15:17
PROVIDERS: Visit Provider Internal Medicine
DX: R05.1 Acute cough (principal)
CPT/HCPCS: 36415; 85025; 85652; 86140

== ENCOUNTER 2024-11-10 14:19 | Outpatient (REF) | payer MEDICAID, SELFPAY ==
--- OUTSIDE RECORDS SUMMARY | 2024-11-10 14:48 | XMS_ITS | Clinical Summary ---
Author Organization [facility] Address [address] [place] [address] Phone Care Team Providers Care Special Systems Technician Name Role Phone Physician, No Pcp Primary Care Provider Unavaila ble Encounters Date Type Department Care Team Description 08/16/2024 9:51 AM EDT - 08/16/2024 11:59 PM EDT Hospital Encounter [facility] Xray [address] [place] [address] Acute cough Discharge Disposition: Home or Self Care from Last 3 Months Social History Tobacco Use Types Packs/Day Years Used Date Smoking Tobacco: Never Assessed Sex and Gender Information Value Date Recorded Sex Assigned at Not on file Legal Sex Male 2:34 PM EST Gender Identity Not on file Sexual Orientation Not on file Plan of Treatment Health Maintenance Due Date Last Done Comments Meningococcal B Vaccine (1 of 2 - Standard) 2019 Annual Well Child Visit (3-21 years old) 05/25/2022 HIV Screening 05/25/2022 Hepatitis C Screening 05/25/2022 Social Influencers of Health Screening 05/25/2022 COVID-19 Vaccine ( season) 2023 10/02/2020, 09/01/2020 Depression Screening 04/07/2024 Influenza Vaccine (#1) 2024 , 12/12/2022, 03/10/2020, Additional history exists DTaP,Tdap,and Td Vaccines (7 - Td or Tdap) 09/24/2025 09/25/2015, 06/29/2007, 10/05/2004, Additional history exists Hepatitis B Vaccines Completed 03/15/2004, 2003, 2003 HIB Vaccines Completed 10/05/2004, 12/06, 2003, Additional history exists Hepatitis A Vaccines Completed 06/29/2007, 06/18/19 MMR Vaccines Completed 07/13/2008, 06/13/2004 Varicella Vaccines Completed 07/13/2008, 06/13/2004 HPV Vaccines Completed 11/06/2016, 09/06, 07/23/2013 IPV Vaccines Completed 05/13/2018, 08/06, 03/15/2004, Additional history exists Meningococcal ACWY Vaccine Completed 03/24/2020, Pneumococcal Vaccine: Pediatrics (0 to 5 Years) and At-Risk Patients (6 to 49 Years) Aged Out No longer eligible based on patient's age to complete this topic RSV Immunization Patients Under 20 months Aged Out No longer eligible based on patient's age to complete this topic Procedures Procedure Name Priority Date/Time Associated Diagnosis Comments XR CHEST 2 VIEWS Routine 08/16/2024 10:0 1 AM EDT Acute cough from Last 3 Months Results * XR Chest 2 Views (08/16/2024 10:01 AM EDT) Anatomical Region Laterality Modality Body Radiographic Cristy ging 08/16/2024 10:0 6 AM EDT Impressions 08/16/2024 10:06 AM EDT Normal examination. Code 09219 -------- FINAL REPORT -------- Dictated By: Parker Alas Dictated Date: 08/16/2024 10:06 ET Assigned Physician: Parker Alas Reviewed and Electronically Signed By: Parker Alas Signed Date: 08/16/2024 10:06 ET Workstation ID: [id number] Transcribed By: Self Edit Transcribed Date: 08/16/2024 10:06 ET Narrative 08/16/2024 10:06 AM EDT HISTORY: The patient is a 19-year-old male with cough, dyspnea, and chest pain. FINDINGS: PA and lateral radiographs of the chest demonstrate normal appearance of the bony structures. The cardiac and mediastinal contours are within normal limits. The lungs and costophrenic angles are clear. Procedure Note Parker Alas MD - 08/16/2024 HISTORY: The patient is a 19-year-old male with cough, dyspnea, and chestpain. FINDINGS: PA and lateral radiographs of the chest demonstrate normalappearance of the bony structures. The cardiac and mediastinal contoursare within normal limits. The lungs and costophrenic angles are clear. IMPRESSION: Normal examination. Code 88187 -------- FINAL REPORT -------- Dictated By: Parker Alas Dictated Date: 08/16/2024 10:06 ET Assigned Physician: Parker Alas Reviewed and Electronically Signed By: Parker Alas Signed Date: 08/16/2024 10:06 ET Workstation ID: [id number] Transcribed By: Self Edit Transcribed Date: 08/16/2024 10:06 ET us Juan Jose Reyes MD IMG XR PROCEDURES Final R esult from Last 3 Months Insurance MEDICAID - [place] Care Teams Special Systems Technician Relationship Specialty Start Date End Date Physician, No Pcp PCP - General 08/16/24
--- OUTSIDE RECORDS SUMMARY | 2024-11-10 14:48 | XMS_ITS ---
Author Name [facility] Organization Unknown Care Team Organization Name Specialty Phone Email Start Date End Da te [facility] Shawna Atkins Primary Care 08/12/2022 11/24/2023 [facility] Afia Cast Primary Care 02/12/2022
--- OUTSIDE RECORDS SUMMARY | 2024-11-10 14:48 | XMS_ITS | Encounter Summary ---
Author Organization [facility] Address [address] [place] [phone] Phone Care Team Providers Care Derrick Car Operator Name Role Phone Denisse Bradshaw MD Primary Care Provider [phone] Encounter Details Date Type Department Care Team (Late st Contact Info) Description 08/11/2023 Procedure Pass OR Admitting Dept - Virtual Department [address] [place] [address] Social History Tobacco Use Types Packs/Day Years Used Date Smoking Tobacco: Never Smokeless Tobacco: Never Alcohol Use Standard Drinks/Week Comments Never 0 (1 standard drink = 0.6 oz pur e alcohol) Education Answer Date Recorded Are you interested in more education? Not on brain e 09/19/2022 Are you concerned about learning? Not on file 09/19/2022 No 09/19/2022 No 09/19/2022 Digital Access Answer Date Recorded No 09/19/2022 No 09/19/2022 Reliable internet access at home? Not on file 09/19/2022 Device with a working camera? Not on file Comments No Sex and Gender Information Value Date Recorded Sex Assigned at Female 07/27/2023 2:56 PM EDT Legal Sex Male 1:24 PM EDT Gender Identity Transgender Male 07/27/2023 2:56 PM EDT Sexual Orientation Queer 07/27/2023 2: 56 PM EDT documented as of this encounter Functional Status * Calculated C-SSRS Risk Score (Lifetime/Recent) Answer Date of Assessment Author No Risk Indicated 08/11/2023 9:18 AM Jennifer Dumas RN * [place] Suicide Severity Rating Scale (Screener/Recent Self-Report) Question Answer Date of Assessment Author 2. Non-Specific Active Suici trina Thoughts (Past 1 Month) No 08/11/2023 9:18 AM Marilyn Degroot RN documented as of this encounter Plan of Treatment Not on file documented as of this encounter Visit Diagnoses Not on filedocumented in this encounter Care Teams Derrick Car Operator Relationship Specialty Start Date End Date Denisse Bradshaw MD [address] [place] [id number] PCP - General Internal Medicine 09/20/22 documented as of this encounter Additional Source Comments The information contained in this document represents components of the legal health record. It is not the complete legal health record.[facility]
--- OUTSIDE RECORDS SUMMARY | 2024-11-10 14:48 | XMS_ITS | Encounter Summary ---
Author Organization [employer] Address [address] [place] [address] [address] [place] [address] Care Team Providers Care Mandolin Repairer Name Role Phone Denisse Bradshaw MD Primary Care Provider [phone] Reason for Visit * Reason Onset Date Comments Nurse Triage 11/25/2022 Encounter Details Date Type Department Care Team ([facility] st Contact Info) Description 11/25/2022 Telephone [facility] [address] [place] [address] Denisse Bradshaw MD [address] [place] [address] Nurse Triage Social History Tobacco Use Types Packs/Day Years Used Date Smoking Tobacco: Never Assessed Comments Unknown Sex and Gender Information Value Date Recorded Sex Assigned at Female 02/04/2022 10:19 AM EDT Legal Sex Female 10:19 AM EDT Gender Identity Transgender Male 02/04/2022 10:1 9 AM EDT Sexual Orientation Gottlie[place] 10/06/2024 9: 08 AM EDT documented as of this encounter Miscellaneous Notes * Telephone Encounter - Gabbi Natarajan RN - 11/25/2022 2:12 PM EDT called pt to triage, spoke to pt. pt states bilateral wrist and ankle pain. pt states has had for many years and having more frequently. pt requesting appt to be seen, given appt with [facility] at 3:00for exam. pt states will need [...] documented in this encounter Plan of Treatment Not on file documented as of this encounter Visit Diagnoses Not on filedocumented in this encounter Care Teams Mandolin Repairer Relationship Specialty Start Date End Date Denisse Bradshaw MD [address] [place] [address] PCP - General Family Medicine 04/14/13 documented as of this encounter
== END 2024-11-10 14:20 | disposition home or self-care (01) ==
LOC: HO.CHCLNP 14:19
PROVIDERS: Visit Provider Pediatrics
DX: Z01.419 Encounter for gynecological examination (general) (routine) without abnormal findings (principal)
CPT/HCPCS: 88175

== ENCOUNTER 2024-12-01 10:30 | Outpatient (RCR) | payer MEDICAID, SELFPAY ==
[2024-11-11 11:47] VITALS: BP 106/70; PULSE 100; TEMP 37.1
[2024-11-11 11:50] VITALS: BMI 34.4
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
--- NOTE | 2024-11-11 15:45 | HO.PHP ---
Patient's case was opened and reviewed in treatment team
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
--- NOTE | 2024-11-24 12:12 | HO.PHPPROGNO ---
Subjective Subjective Date of Service: 11/23/24 Reason For Visit: PTSD,MDD Interim History: Patient requesting an extension. I still cant handle my big emotions He feels he would benefit from more time so he can work more on coping skills. Feels the program has really benefited him. Denies any SIB in interim. Denies any SI, last time was over a week ago, in passing. Focus has been prpoblmematic especially with semester starting. Strattera at 25 mg, denies any side effects. Sleep mostly intact. Medication Compliance: Yes Side effects from medications: No Attending Groups: Yes Review of Systems Acute medical concerns: No Diagnostics Vital Signs (24Hr): BMI result Body Mass Index 34.4 Assessment & Plan Assessment & Plan (1) PTSD (post-traumatic stress disorder): Status: Acute Code(s): F43.10 - Post-traumatic stress disorder, unspecified (2) ADHD (attention deficit hyperactivity disorder): Status: Acute Code(s): F90.9 - Attention-deficit hyperactivity disorder, unspecified type (3) MDD (major depressive disorder), recurrent severe, without psychosis: Status: Acute Code(s): F33.2 - Major depressive disorder, recurrent severe without psychotic features Plan extend PHP increase Strattera to 40 mg qd increase Abilify to 3.5 mg qhs continue guanfacine ER 1 mg qd Routine lab work as indicated EKG, routine for baseline QTc for medication considerations as indicated UDS as indicated MassPat reviewed Continue to monitor Patient educated on: diagnosis and medication risk/benefits Informed Consent: understands Reason for contiued partial hosp. stay Substantial Risk for: inability to function and med/psych decompensation Certification I certify that partial hospital treatment is medically necessary due to the symptoms and problems resulting from the patient's mental illness and the failure to treat the patient at the partial hospital level of care would likely result in the patient requiring inpatient psychiatric care which could not be prevented at a less intensive level of care. Total time managing care of this patient today _30___ minutes. Discharge Plan Discharge Attending provider: Gisselle Gao Medications: New aripiprazole [Abilify] 10 mg tablet 10 mg PO BEDTIME 14 Days Qty: 14 0RF Rx Instructions: Please discontinue any other abilify rx on file Continued ketoconazole 2 % shampoo See Rx Instructions .ROUTE .COMPLEX Rx Instructions: SHAMPOO USING 5-10 MLS, LEAVE ON 5 MINUTES, THEN RINSE OFF 2X/WEEK FOR 2-4 WEEKS NEEDED ketotifen fumarate 0.025 % (0.035 %) drops 1 drp ophthalmic (eye) DAILY Rx Instructions: INJECT 1 DROP INTO THE EYE ONCE PER DAY. prazosin 1 mg capsule 1 mg PO BEDTIME Rx Instructions: Take one hour prior to bedtime. sumatriptan succinate 50 mg tablet 50 mg PO DAILY PRN (Reason: Migraine Headache) Rx Instructions: TAKE 1 TABLET (50 MG) BY MOUTH 1 (ONE) TIME IF NEEDED FOR MIGRAINE. testosterone cypionate 200 mg/mL oil 40 mg subcut QWEEK norethindrone (contraceptive) 0.35 mg tablet 0.35 mg PO DAILY fluticasone propionate 50 mcg/actuation spray,suspension 1 spray intranasal DAILY sertraline 50 mg tablet 50 mg PO DAILY loratadine 10 mg tablet 10 mg PO DAILY PRN (Reason: allergies) hydroxyzine pamoate 25 mg capsule 25 mg PO Q8H PRN (Reason: itch) guanfacine 1 mg tablet extended release 24 hr 1 mg PO DAILY 14 Days Qty: 14 0RF atomoxetine 40 mg capsule 40 mg PO QAM Qty: 30 0RF trazodone 100 mg tablet 100 mg PO BEDTIME PRN (Reason: for insomnia) 30 Days Qty: 30 0RF Discontinued trazodone 50 mg tablet 50 mg PO BEDTIME atomoxetine 18 mg capsule 18 mg PO DAILY No Action acetaminophen 325 mg tablet 650 mg PO Q6H PRN (Reason: mild pain) Print Language: Macedonian
--- NOTE | 2024-12-01 10:26 | HO.PHPPROGNO ---
Subjective Subjective Date of Service: 12/01/24 Reason For Visit: PTSD,MDD Interim History: Patient seen for follow-up, anticipating discharge at the end of program today.?He has an intake scheduled for this Friday, 12/03, to transition to [facility]. Pt reports that he's 'not great' today, experiencing a lot of self-hatred. Attributes this at least partially to having run out of guanfacine a few days ago. He has a lot of anxiety associated w/ making phone calls and therefore put off requesting a refill. I informed him that I got the request to send a refill yesterday and he saw that it had been sent to the [facility] pharmacy yesterday. Per pt request, I switched [facility] rx to [facility] so that it will be delivered to his home today. Pt feels better overall since starting PHP. He feels like the med adjustments have helped w/ ADHD sx and anxiety overall. He denies any med SE. He asks about either titrating prazosin or trazodone due to intermittent issues w/ insomnia and nightmares, which have improved overall. He usually sleeps 7-8 hrs but got 6 hrs of fragmented sleep last night. Denies frequent nightmares recently but reports they have been very intense in the past. He agreed w/ plan to titrate the trazodone to 100 mg qhs prn. Pt endorses a passive wish but denies active SI. He denies any violent ideation. He denies any violent ideation or psychotic sx. Medication Compliance: Yes (aside from missing guanfacine for past few days) Side effects from medications: No Attending Groups: Yes Review of Systems Acute medical concerns: No Review of Systems Review of Systems Yes all other systems are reviewed and are negative Mental Status Exam Mental Status Exam Narrative: Grooming/hygiene wnl. Casually dressed. Cooperative w/ interview. Maintains good eye contact Speech fluent and wnl Steady gait. No tics, tremors or dyskinesias. Calm Mood is not the greatest Affect- appropriate, reactive, brightens up appropriately Thought process- goal directed,without evidence of FTD Thought content- negative self thoughts, rumination, passive wish but future oriented Alert/oriented in all spheres Denies AH/VH and does not appear to respond to internal stimuli Insight/judgment intact Cognition not formally tested. Pt endorses issues with short-term memory impairment. Diagnostics Vital Signs (24Hr): BMI result Body Mass Index 34.4 Assessment & Plan Assessment & Plan (1) MDD (major depressive disorder), recurrent severe, without psychosis: Status: Acute Code(s): F33.2 - Major depressive disorder, recurrent severe without psychotic features (2) ADHD (attention deficit hyperactivity disorder): Status: Acute Code(s): F90.9 - Attention-deficit hyperactivity disorder, unspecified type (3) PTSD (post-traumatic stress disorder): Status: Acute Code(s): F43.10 - Post-traumatic stress disorder, unspecified Plan Discharge from [facility] Pt is scheduled for intake at [facility] on Friday, 12/03 Med change made today: May take 1/2 to 1 of 100 mg tab trazodone qhs prn for insomnia (increased from 50 mg qhs prn) Otherwise continue current med regimen Scripts for trazodone and guanfacine sent to [facility] today *Safety plan reviewed *Discharge diagnoses, treatment course, discharge plan have been reviewed with patient (including medication regime, medication management, potential side effects) as well as treatment rationale were also revisited *Discharge paperwork signed and given to patient, copy sent for scanning to chart Informed Consent: understands Reason for contiued partial hosp. stay Substantial Risk for: stable for discharge Certification I certify that partial hospital treatment is medically necessary due to the symptoms and problems resulting from the patient's mental illness and the failure to treat the patient at the partial hospital level of care would likely result in the patient requiring inpatient psychiatric care which could not be prevented at a less intensive level of care. Total time managing care of this patient today _60_ minutes, including FTF time with pt, chart review, documentation Discharge Plan Discharge Attending provider: Gisselle Gao Medications: New atomoxetine 25 mg capsule 25 mg PO QAM Qty: 14 0RF atomoxetine 40 mg capsule 40 mg PO QAM Qty: 14 0RF aripiprazole 5 mg tablet 5 mg PO BEDTIME Qty: 14 0RF trazodone 100 mg tablet 100 mg PO BEDTIME PRN (Reason: for insomnia) 14 Days Qty: 14 0RF Continued ketoconazole 2 % shampoo See Rx Instructions .ROUTE .COMPLEX Rx Instructions: SHAMPOO USING 5-10 MLS, LEAVE ON 5 MINUTES, THEN RINSE OFF 2X/WEEK FOR 2-4 WEEKS NEEDED ketotifen fumarate 0.025 % (0.035 %) drops 1 drp ophthalmic (eye) DAILY Rx Instructions: INJECT 1 DROP INTO THE EYE ONCE PER DAY. prazosin 1 mg capsule 1 mg PO BEDTIME Rx Instructions: Take one hour prior to bedtime. sumatriptan succinate 50 mg tablet 50 mg PO DAILY PRN (Reason: Migraine Headache) Rx Instructions: TAKE 1 TABLET (50 MG) BY MOUTH 1 (ONE) TIME IF NEEDED FOR MIGRAINE. testosterone cypionate 200 mg/mL oil 40 mg subcut QWEEK norethindrone (contraceptive) 0.35 mg tablet 0.35 mg PO DAILY fluticasone propionate 50 mcg/actuation spray,suspension 1 spray intranasal DAILY sertraline 50 mg tablet 50 mg PO DAILY loratadine 10 mg tablet 10 mg PO DAILY PRN (Reason: allergies) hydroxyzine pamoate 25 mg capsule 25 mg PO Q8H PRN (Reason: itch) aripiprazole 2 mg tablet 2 mg PO BEDTIME Qty: 30 0RF guanfacine 1 mg tablet extended release 24 hr 1 mg PO DAILY 14 Days Qty: 14 0RF Discontinued trazodone 50 mg tablet 50 mg PO BEDTIME atomoxetine 18 mg capsule 18 mg PO DAILY No Action acetaminophen 325 mg tablet 650 mg PO Q6H PRN (Reason: mild pain) Print Language: Bolivian
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
== END 2024-12-01 23:59 | disposition home or self-care (01) ==
LOC: HO.PHPA 10:30
PROVIDERS: Visit Provider Psychiatry & Neurology Psychiatry
DX: F33.2 Major depressive disorder, recurrent severe without psychotic features (principal); F90.9 Attention-deficit hyperactivity disorder, unspecified type; F43.10 Post-traumatic stress disorder, unspecified; F64.0 Transsexualism; Z79.899 Other long term (current) drug therapy
CPT/HCPCS: 90791; 90853

== ENCOUNTER → 2024-12-01 10:30 | Outpatient (BNV) | payer OTHER, SELFPAY | PROVIDERS: Visit Provider Psychiatry & Neurology Psychiatry | DX: F33.2 Major depressive disorder, recurrent severe without psychotic features (principal); F90.9 Attention-deficit hyperactivity disorder, unspecified type; F43.10 Post-traumatic stress disorder, unspecified | CPT/HCPCS: 99499 ==

== ENCOUNTER → 2024-12-10 09:30 | Outpatient (BNV) | payer OTHER, SELFPAY | PROVIDERS: Visit Provider Psychiatry & Neurology Psychiatry | DX: F33.2 Major depressive disorder, recurrent severe without psychotic features (principal); F90.9 Attention-deficit hyperactivity disorder, unspecified type; F43.10 Post-traumatic stress disorder, unspecified | CPT/HCPCS: 99499 ==

== ENCOUNTER 2025-01-06 09:30 | Outpatient (RCR) | payer OTHER, SELFPAY ==
[2024-12-03 09:41] VITALS: BMI 34.1
[2024-12-03 10:10] VITALS: BP 102/70; PULSE 100; TEMP 36.8
--- NOTE | 2024-12-03 10:10 | PC.ADMIT ---
Patient is a 19 year old single trans-gendered male who uses he/him pronouns who started IOP LOC as a step down from PHP LOC. Patient is starting college next week thus stepped down to IOP LOC. Patient continues to struggle with sxs of depression with passive SI and anxiety. Reports family issues. Patient lives with his grandmother and his sister. Stated his sister has Bipolar and BPD and her mood is labile. Stated there is a lot of family stress. Patient is alert and oriented x4. He is calm and cooperative. He presented with depressed mood and anxious affect. When asked about SI patient stated, Suicidal thoughts are like passive they are kind of always there, no plan of intent. Patient given a copy of his safety plan if needed. Supports identified are, A few good friends, therapist, my family sometimes, when they are in a good mood. Patient denied any issues with substance use. Medications updated with patient and [facility] medication list. Patient reports taking medications as prescribed. Medication education provided.
--- NOTE | 2024-12-09 15:02 | HO.PHP ---
Case was opened during weekly treatment team
--- NOTE | 2024-12-10 13:19 | HO.PHPPROGNO ---
Subjective Subjective Date of Service: 12/10/24 Reason For Visit: anxiety,depression Interim History: DOing okay Reports having been just a bit emotional due to starting school, had been feeling anxious but now mood is okay . Has been going to bed earlier, feeling tired by end of day. Doing well on increase in Strattera to 40 mg, focus is now good. DEnies any issues with med. Had an isolated instance of impulsive SIB, he had been trimming his eyebrows with a blade and then got an inutrive thought to cut at the sight of the blade, even though he did not feel otherwise emotionally triggered. Denies any further SIB. Trying to stay away from anything sharp. Denies any hopelessness or SI. Utilizing hydroxyzine daily in AM which helps with anxiety Medication Compliance: Yes Side effects from medications: No Attending Groups: Yes Review of Systems Acute medical concerns: No Review of Systems Review of Systems Yes all other systems are reviewed and are negative Mental Status Exam Mental Status Exam Narrative: A+Ox3 in NAD Grooming/hygiene wnl. Casually dressed. Cooperative w/ interview. Maintains good eye contact Speech fluent and wnl Steady gait. No tics, tremors or dyskinesias. Calm Mood is okay Affect- appropriate, reactive, brightens up appropriately Thought process- goal directed,without evidence of FTD Thought content- negative self thoughts, rumination, passive wish but future oriented Alert/oriented in all spheres Denies AH/VH and does not appear to respond to internal stimuli Insight/judgment intact Diagnostics Vital Signs (24Hr): BMI result Body Mass Index 34.1 Assessment & Plan Assessment & Plan (1) MDD (major depressive disorder), recurrent severe, without psychosis: Status: Acute Code(s): F33.2 - Major depressive disorder, recurrent severe without psychotic features (2) ADHD (attention deficit hyperactivity disorder): Status: Acute Code(s): F90.9 - Attention-deficit hyperactivity disorder, unspecified type (3) PTSD (post-traumatic stress disorder): Status: Acute Code(s): F43.10 - Post-traumatic stress disorder, unspecified Plan continue IOP continue Abilify 10 mg qhs continue guanfacine 1mg qam continue trazodone 100 mg qhs (titrated on 12/01) continue atmoxetine 40 mg + 25 mg qam forADHD continue hydroxyzine 25 mg tid prn for anxiety/insomnia continue sertraline 50 mg qd continue prazosin 1 mg qhs continue to monitor I certify that the patient needs IOP Services for a minimum of 9 hours per week of therapeutic services. I certify the patient is experiencing symptoms of such intensity that they are unable to be safely treated in a less intensive setting and would otherwise require admission to a more intensive level of care. Patient educated on: diagnosis and medication risk/benefits Informed Consent: understands Reason for contiued partial hosp. stay Substantial Risk for: rapid decompensation and med/psych decompensation Certification I certify that the patient needs IOP Services for a minimum of 9 hours per week of therapeutic services. I certify the patient is experiencing symptoms of such intensity that they are unable to be safely treated in a less intensive setting and would otherwise require admission to a more intensive level of care. Total time managing care of this patient today __30__ minutes. Discharge Plan Discharge Attending provider: Gisselle Gao Medications: No Action acetaminophen 325 mg tablet 650 mg PO Q6H PRN (Reason: mild pain) ketoconazole 2 % shampoo See Rx Instructions .ROUTE .COMPLEX Rx Instructions: SHAMPOO USING 5-10 MLS, LEAVE ON 5 MINUTES, THEN RINSE OFF 2X/WEEK FOR 2-4 WEEKS NEEDED ketotifen fumarate 0.025 % (0.035 %) drops 1 drp ophthalmic (eye) DAILY Rx Instructions: INJECT 1 DROP INTO THE EYE ONCE PER DAY. prazosin 1 mg capsule 1 mg PO BEDTIME Rx Instructions: Take one hour prior to bedtime. sumatriptan succinate 50 mg tablet 50 mg PO DAILY PRN (Reason: Migraine Headache) Rx Instructions: TAKE 1 TABLET (50 MG) BY MOUTH 1 (ONE) TIME IF NEEDED FOR MIGRAINE. testosterone cypionate 200 mg/mL oil 40 mg subcut QWEEK norethindrone (contraceptive) 0.35 mg tablet 0.35 mg PO DAILY fluticasone propionate 50 mcg/actuation spray,suspension 1 spray intranasal DAILY sertraline 50 mg tablet 50 mg PO DAILY loratadine 10 mg tablet 10 mg PO DAILY PRN (Reason: allergies) hydroxyzine pamoate 25 mg capsule 25 mg PO Q8H PRN (Reason: itch) guanfacine 1 mg tablet extended release 24 hr 1 mg PO DAILY 14 Days Qty: 14 0RF aripiprazole [Abilify] 10 mg tablet 10 mg PO BEDTIME 14 Days Qty: 14 0RF Rx Instructions: Please discontinue any other abilify rx on file atomoxetine 40 mg capsule 40 mg PO QAM Qty: 30 0RF trazodone 100 mg tablet 100 mg PO BEDTIME PRN (Reason: for insomnia) 30 Days Qty: 30 0RF Print Language: Azerbaijani
[2024-12-14 11:58] VITALS: BP 102/72; PULSE 96
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
--- NOTE | 2025-01-06 21:28 | HO.PHPPROGNO ---
Subjective Subjective Date of Service: 01/06/25 Reason For Visit: anxiety,depression Interim History: Patient seen for follow-up, anticipating discharge at the end of program today.? Patient presents as bright today. Doing well. Just need to catch up (in school) I had fallen behind States he is passing all his classes and has been focused on his own things and trying not to get pulled into drama with his family. Reports no acute issues or concerns. Medication compliant, medications well-tolerated. Denies any adverse effects.? Mood is stable.? Denies any hopelessness or SI. Denies thoughts of harming self or others at this time. Denies any aggressive ideation or HI. Denies any paranoia or AH or VH. Sleep, appetite, energy stable. Medication Compliance: Yes Side effects from medications: No Attending Groups: Yes Mental Status Exam Mental Status Exam Narrative: Alert, oriented, in no acute distress. Calm, cooperative. Mood stable, affect appropriate. Speech normal. Thought process linear, coherent, more goal-directed. Thought content related to stressors, future-oriented, denies any helplessness, hopelessness or SI.? No aggressive ideation or HI. No paranoia or delusional content elicited. No evidence of psychosis. Insight and judgment fair-good. Diagnostics Vital Signs (24Hr): BMI result Body Mass Index 34.1 Assessment & Plan Assessment & Plan (1) MDD (major depressive disorder), recurrent severe, without psychosis: Status: Acute Code(s): F33.2 - Major depressive disorder, recurrent severe without psychotic features (2) ADHD (attention deficit hyperactivity disorder): Status: Acute Code(s): F90.9 - Attention-deficit hyperactivity disorder, unspecified type (3) PTSD (post-traumatic stress disorder): Status: Acute Code(s): F43.10 - Post-traumatic stress disorder, unspecified Plan Discharge from [facility] Continue regular medications? Refills sent to pharmacy Will defer further medication management to outpatient provider *Safety plan reviewed *Discharge diagnoses, treatment course, discharge plan have been reviewed with patient (including medication regime, medication management, potential side effects) as well as treatment rationale were also revisited *Discharge paperwork signed and given to patient, copy sent for scanning to chart Patient educated on: diagnosis and medication risk/benefits Informed Consent: understands Reason for contiued partial hosp. stay Substantial Risk for: stable for discharge Certification I certify that partial hospital treatment is medically necessary due to the symptoms and problems resulting from the patient's mental illness and the failure to treat the patient at the partial hospital level of care would likely result in the patient requiring inpatient psychiatric care which could not be prevented at a less intensive level of care. Total time managing care of this patient today _30___ minutes. Discharge Plan Discharge Attending provider: Gisselle Gao Medications: Continued acetaminophen 325 mg tablet 650 mg PO Q6H PRN (Reason: mild pain) ketoconazole 2 % shampoo See Rx Instructions .ROUTE .COMPLEX Rx Instructions: SHAMPOO USING 5-10 MLS, LEAVE ON 5 MINUTES, THEN RINSE OFF 2X/WEEK FOR 2-4 WEEKS NEEDED ketotifen fumarate 0.025 % (0.035 %) drops 1 drp ophthalmic (eye) DAILY Rx Instructions: INJECT 1 DROP INTO THE EYE ONCE PER DAY. sumatriptan succinate 50 mg tablet 50 mg PO DAILY PRN (Reason: Migraine Headache) Rx Instructions: TAKE 1 TABLET (50 MG) BY MOUTH 1 (ONE) TIME IF NEEDED FOR MIGRAINE. testosterone cypionate 200 mg/mL oil 40 mg subcut QWEEK norethindrone (contraceptive) 0.35 mg tablet 0.35 mg PO DAILY fluticasone propionate 50 mcg/actuation spray,suspension 1 spray intranasal DAILY loratadine 10 mg tablet 10 mg PO DAILY PRN (Reason: allergies) hydroxyzine pamoate 25 mg capsule 25 mg PO Q8H PRN (Reason: itch) trazodone 100 mg tablet 100 mg PO BEDTIME PRN (Reason: for insomnia) 30 Days Qty: 30 0RF prazosin 1 mg capsule 1 mg PO BEDTIME 14 Days Qty: 14 0RF Rx Instructions: Take one hour prior to bedtime. sertraline 50 mg tablet 50 mg PO DAILY 14 Days Qty: 14 0RF aripiprazole [Abilify] 10 mg tablet 10 mg PO BEDTIME 14 Days Qty: 14 0RF Rx Instructions: Please discontinue any other abilify rx on file atomoxetine 40 mg capsule 40 mg PO QAM 14 Days Qty: 14 0RF guanfacine 1 mg tablet extended release 24 hr 1 mg PO DAILY 30 Days Qty: 30 0RF Patient Education: Depression (DC), PTSD (Post Traumatic Stress Disorder) (DC) Print Language: Turkish
== END 2025-01-06 23:59 | disposition home or self-care (01) ==
LOC: HO.IOP 09:30
PROVIDERS: Visit Provider Psychiatry & Neurology Psychiatry
DX: F33.3 Major depressive disorder, recurrent, severe with psychotic symptoms (principal); F90.9 Attention-deficit hyperactivity disorder, unspecified type; F43.10 Post-traumatic stress disorder, unspecified
CPT/HCPCS: 90791; S9480